=== PATIENT | male | born 1945 | race Caucasian/White ===

== ENCOUNTER → 2016-11-09 | Outpatient (CLI) | payer OTHER, MEDICARE | LOC: MMPC 11:11 | PROVIDERS: ATTEND Internal Medicine | DX: M48.06 Spinal stenosis, lumbar region (principal); Z02.89 Encounter for other administrative examinations; E11.9 Type 2 diabetes mellitus without complications; E78.5 Hyperlipidemia, unspecified; I48.91 Unspecified atrial fibrillation; E66.9 Obesity, unspecified | CPT/HCPCS: 99214; G0463 ==

== ENCOUNTER → 2017-02-22 | Outpatient (CLI) | payer OTHER, MEDICARE ==
[2017-02-22 10:41] LABS: BASOPHILS # (AUTO) 0.04 10*3/UL; BASOPHILS % (AUTO) 0.4 % (0-1); EOSINOPHILS # (AUTO) 0.32 10*3/UL; EOSINOPHILS % (AUTO) 3.5 % (0-8); HEMATOCRIT 49.9 % (42.0-52.0); HEMOGLOBIN 16.7 g/dL (14.0-18.0); LYMPHOCYTES # (AUTO) 2.63 10*3/uL; MEAN CORPUSCULAR HEMOGLOBIN 31.4 PG (27-31); MEAN CORPUSCULAR HGB CONC 33.5 g/dL (33-37); MEAN CORPUSCULAR VOLUME 93.8 FL (80-90); MEAN PLATELET VOLUME 10.3 FL (7.4-12.2); MONOCYTES # (AUTO) 0.72 10*3/UL (0.3-0.8); MONOCYTES % (AUTO) 7.9 % (5-15); NEUTROPHILS # (AUTO) 5.38 10*3/UL; NEUTROPHILS % (AUTO) 59.1 % (50-80); RED BLOOD COUNT 5.32 10^6/uL (4.70-6.10)
[2017-02-22 11:02] LABS: HEMOGLOBIN A1C 7.56 % (4.2-6.0)
[2017-02-22 11:03] LABS: CREATININE, URINE 73.4 MG/DL (15-500)
[2017-02-22 11:05] LABS: PLATELET MORPHOLOGY COMMENT NORMAL MORPHOLOGY (NORM); RBC MORPHOLOGY COMMENT NORMAL MORPHOLOGY (NORM); WBC MORPHOLOGY COMMENT NORMAL MORPHOLOGY (NORM)
[2017-02-22 12:18] LABS: BUN/CREATININE RATIO 18.88 (6-20); CALCIUM 9.6 mg/dL (8.7-10.7); CHOL/HDL RATIO 2.52 RATIO (0-4.0); SERUM ALBUMIN 3.9 g/dL (3.5-4.8)
== END ==
LOC: MOB LAB 08:35
PROVIDERS: ATTEND Internal Medicine
DX: E11.9 Type 2 diabetes mellitus without complications (principal); E78.5 Hyperlipidemia, unspecified; D53.9 Nutritional anemia, unspecified; I48.91 Unspecified atrial fibrillation; E87.5 Hyperkalemia; R61 Generalized hyperhidrosis; E66.9 Obesity, unspecified; R74.8 Abnormal levels of other serum enzymes; E29.1 Testicular hypofunction
CPT/HCPCS: 36415; 80053; 80061; 82043; 82550; 83036; 84403; 85025

== ENCOUNTER → 2017-02-24 | Outpatient (CLI) | payer OTHER, MEDICARE | LOC: MMPC 11:11 | PROVIDERS: ATTEND Internal Medicine | DX: E11.9 Type 2 diabetes mellitus without complications (principal); I48.91 Unspecified atrial fibrillation; E78.5 Hyperlipidemia, unspecified; E66.9 Obesity, unspecified; R74.8 Abnormal levels of other serum enzymes | CPT/HCPCS: 99214; G0463 ==

== ENCOUNTER → 2017-02-25 | Outpatient (CLI) | payer OTHER, MEDICARE | LOC: MMPC 09:00 | PROVIDERS: ATTEND Nurse Practitioner Family | DX: L57.0 Actinic keratosis (principal) | CPT/HCPCS: 17000 ×2; 17003 ×2; G0463 ==

== ENCOUNTER → 2017-05-25 | Outpatient (CLI) | payer OTHER, MEDICARE ==
[2017-05-25 12:10] LABS: HEMOGLOBIN A1C 7.21 % (4.2-6.0)
[2017-05-25 12:13] LABS: CREATININE, URINE 83.7 MG/DL (15-500)
[2017-05-25 12:14] LABS: BUN/CREATININE RATIO 17.05 (6-20); CALCIUM 9.5 mg/dL (8.7-10.7); SERUM ALBUMIN 3.9 g/dL (3.5-4.8)
[2017-05-25 12:15] LABS: CHOL/HDL RATIO 2.4 RATIO (0-4.0); LDL CHOLESTEROL,CALCULATED 37.6 mg/dL
== END ==
LOC: MOB LAB 10:55
PROVIDERS: ATTEND Internal Medicine
DX: E11.9 Type 2 diabetes mellitus without complications (principal); E78.5 Hyperlipidemia, unspecified; E29.1 Testicular hypofunction
CPT/HCPCS: 36415; 80053; 80061; 82043; 82550; 83036; 84403

== ENCOUNTER → 2017-06-01 | Outpatient (CLI) | payer OTHER, MEDICARE | LOC: MMPC 11:11 | PROVIDERS: ATTEND Surgery | DX: Z86.010 Personal history of colon polyps (principal); Z80.0 Family history of malignant neoplasm of digestive organs | CPT/HCPCS: 99212; G0463 ==

== ENCOUNTER 2017-06-02 08:40 | Day surgery (SDC) | payer OTHER, MEDICARE ==
[~2017-06-02 08:40] MED LIST: LIDOCAINE W/ SODIUM BICARB 0.5 ML SYR ONE; Lactated Ringers 1,000 ML PRIMARY IV ONE; fentaNYL Inj 100 MCG/2 ML VIAL ONE
[2017-06-02 09:13] VITALS: RESP 14
--- NOTE | 2017-06-02 09:58 | GEN.OPNOTE ---
Colonoscopy Procedure Note Surgery Date: 06/02/17 Preoperative Diagnosis: Personal history of colon polyps. Family history of colon cancer. Postoperative Diagnosis: Same. Right colon polyp-small. Procedure: Complete colonoscopy with biopsy and destruction of right colon polyp. Surgeon: Jonatan Bell MD Anesthesia Provider: Jose Cruz Garces CRNA Anesthesia Type: MAC Indications: See preoperative diagnosis. It's been 5 years since the patient's last colonoscopy. Findings: Prep : [Very good] Cecum : [Normal] Ascending : [Small polyp just above the ileocecal valve, biopsied and destroyed , otherwise normal] Transverse : [Normal] Sigmoid : [Scattered diverticuli, otherwise normal] Rectum : [Normal] Digital Rectal Exam : [No significant perianal pathology. Prostate normal size and consistency for age] A lubricated flexible colonoscope was inserted and passed to the blind end of the cecum. The blind end of the cecum, appendiceal orifice, ileocecal valve were all clearly seen. There is a small polyp just above the ileocecal valve. It was biopsied and destroyed. Air was aspirated as the scope was withdrawn. Other than scattered sigmoid diverticulosis the entire colonoscopy was normal without polyp, tumor, neoplastic mass, infectious or inflammatory process. The scope was withdrawn completing the procedure. Patient tolerated the procedure well without complication. He was taken to outpatient surgery in stable condition. Follow-up will be in my office on an as-needed basis. We will call the biopsy results when available. Patient will be on a 5 year recall program for colonoscopies with his personal history of colon polyps and his family history of colon cancer.
[2017-06-02 11:23] VITALS: TEMP 97.4
== END 2017-06-02 10:15 | disposition home or self-care (01) ==
LOC: SDSC 08:40
PROVIDERS: ATTEND Surgery
DX: Z86.010 Personal history of colon polyps (principal); Z80.0 Family history of malignant neoplasm of digestive organs; K63.5 Polyp of colon
CPT/HCPCS: 45380; 45388; J2704; J3010; J7120

== ENCOUNTER 2018-06-27 08:21 | Observation (INO) ==
[2018-06-27] MEDS ORDERED: Sodium Chloride 0.9% 1,000 ML PRIMARY IV ONE (08:31)
[2018-06-27] MEDS ORDERED: DILTIAZEM 5 MG/ML - 5 ML IV ONE ×2 (08:32→13:08)
--- NOTE | 2018-06-27 08:34 | EKG ---
[address] [address] Measurements Intervals [place] Rate: 146 P: LA: 0 QRS: 48 QRSD: 89 T: 65 QT: 274 QTc: 358 Interpretive Statements ATRIAL FIBRILLATION WITH RAPID VENTRICULAR RESPONSE LOW VOLTAGE ABNORMAL RHYTHM ECG No previous ECG available for comparison Electronically Signed On 06-27-18 15:17:39 MDT by Néstor Espinal [id number]
[2018-06-27 08:38] LABS: BASOPHILS # (AUTO) 0.05 10*3/UL; BASOPHILS % (AUTO) 0.4 % (0-1); EOSINOPHILS # (AUTO) 0.24 10*3/UL; EOSINOPHILS % (AUTO) 1.9 % (0-8); Hematocrit [HCT] 48.5 % (42.0-52.0); Hemoglobin [HGB] 16.7 g/dL (14.0-18.0); LYMPHOCYTES # (AUTO) 3.06 10*3/uL; MEAN CORPUSCULAR HEMOGLOBIN 31.3 PG (27-31); MEAN CORPUSCULAR HGB CONC 34.4 g/dL (33-37); MEAN PLATELET VOLUME 9.4 FL (7.4-12.2); MONOCYTES # (AUTO) 1.07 10*3/UL (0.3-0.8); MONOCYTES % (AUTO) 8.6 % (5-15); NEUTROPHILS # (AUTO) 7.97 10*3/UL; NEUTROPHILS % (AUTO) 64.1 % (50-80); RED BLOOD COUNT 5.33 10^6/uL (4.70-6.10)
[2018-06-27 08:40] LABS: PLATELET MORPHOLOGY COMMENT NORMAL MORPHOLOGY (NORM); RBC MORPHOLOGY COMMENT NORMAL MORPHOLOGY (NORM); WBC MORPHOLOGY COMMENT NORMAL MORPHOLOGY (NORM)
--- NOTE | 2018-06-27 08:43 | PDOC ---
Chest Pain HPI - General Date Seen by Provider: 06/27/18 Time Seen by Provider: 08:25 Source: Patient Exam Limitations: POSITIVE: No limitations Treatment Prior to Arrival: REPORTS: Other (The patient took 2 full strength aspirin this morning at home as well as a dose of Xarelto which he typically takes at night) Nurse's Notes Reviewed & Considered: Yes <JONATHAN ESTEVEZ - Last Filed: 06/27/18 09:06> <Yogi Rodriguez - Last Filed: 06/28/18 08:06> - General Chief Complaint: Chest Pain Stated Complaint: CHEST PAIN - History of Present Illness Initial Comments: The patient is a 72-year-old male who presents to the emergency department with left upper chest pain. He states that he woke up this morning with pain in his left upper chest. He also reports increase shortness of breath with walking. He denies any lightheadedness or syncope. He does have a history of chronic atrial fibrillation for which he is anticoagulated with Xarelto. He had recently done a follow-up with the surveillance inspector and was taken off of Rythmol approximately 2 weeks ago. He was due for his cardiology follow-up later today. Other than the atrial fibrillation the patient does not have any history of coronary artery disease. He does have a history of hypertension and diabetes. He does take Lopressor 50 mg twice a day. He states that he has had atrial fibrillation for quite some time and generally is unaware of the symptoms and his rate has typically been well controlled. He did have recent surgery on his right wrist. (JONATHAN ESTEVEZ) - Patient Home Medications Home Medications: Home Medications Ferrous Sulfate [Slow Rel Iron] 1 tab ORAL QD tab 06/11/11 Multivitamin [Flintstones] 1 ea PO DAILY 03/22/12 Ascorbic Acid [Vitamin C] 1 tab PO DAILY 09/21/12 Cholecalciferol (Vitamin D3) [Vitamin D3] 1 tab PO DAILY 09/21/12 duloxetine 60 mg capsule,delayed release 60 mg PO QD #90 cap 09/24/17 levothyroxine 88 mcg tablet 88 mcg PO QD #90 tab 09/24/17 metoprolol tartrate 50 mg tablet 50 mg PO BID #180 tab 09/24/17 omeprazole 40 mg capsule,delayed release 40 mg PO QD #90 cap 09/24/17 testosterone cypionate 200 mg/mL intramuscular oil 150 mg IM Q2 weeks #6 ml 06/04 dapagliflozin 5 mg tablet 5 mg PO QAM #90 tab 12/30/17 rivaroxaban 15 mg tablet 15 mg PO QPM #90 tab 03/07/18 tamsulosin 0.4 mg capsule 0.8 mg PO DAILY #180 cap 03/30/18 pravastatin 80 mg tablet 80 mg PO QHS #90 tab 04/07/18 hydrocodone bitartrate ER 80 mg tablet,crush resist,extended rel. 24hr 80 mg PO QDAY #60 tab 05/23/18 oxyCODONE IR Tab [OxyIR Tab] 10 mg PO Q4-6H PRN 06/27/18 - Patient Allergies Allergies/Adverse Reactions: Allergies 3 Allergy/AdvReac Type Severity Reaction Status Date / Time No Known Allergies Allergy Verified 06/27/18 08:32 Past Medical History - heen HEENT History: Denies History, Cataracts Additional HEENT History: removed from right eye Cardiovascular History: Hypertension, Arrhythmia, Hyperlipidemia Additional Cardiovasular History: HX OF A FIB Respiratory History: Denies History Additional Respiratory History: ALLERGIC RHINITIS Gastrointestinal History: Denies History Additional Gastrointestinal History: ABDOMINAL HERNIA X 6. Genitourinary History: Denies History Endocrine History: Type 2 Diabetes (oral), Hypothyroidism Musculoskeletal History: Arthritis Prosthesis or Implant: Yes (RIGHT KNEE) Neurological History: Denies History Blood Disorders: Anemia Psychiatric History: Denies History History of Sexually Transmitted Diseases: No Cancer History: Denies History History of MDRO: No History of Other Communicable Diseases: No Alcohol Use: None In the Past 12 Months, Have Used or Abuse Any Substance: None Previous Surgical History: Yes Type / Date of Surgery: ABDOMINAL WALL HERNIA APPY/ CATARACT EXT/ KIRTI/ COLONOSCOPY/ EGD/ GASTRIC BYPASS/ LEFT KNEE SCOPE/ L3-5 DECOMPRESSION/ RIGHT TKA Anesthesia Reactions: No Malignant Hyperthermia: No Significant Family History: Cancer Additional Family History: FATHER HAD COLON CA Past Medical History Reviewed: Reviewed - No Changes <JONATHAN ESTEVEZ - Last Filed: 06/27/18 09:06> ROS - Limitations ROS Limitations: No Limitations Constitution: DENIES: Chills, Fever Cardiovascular: REPORTS: Chest Pain, Heart Palpitations. DENIES: Edema Respiratory: REPORTS: Shortness Of Breath (With walking this morning). DENIES: Cough Non Productive, Cough Productive Neurological: REPORTS: Denies Neuro Symptoms. DENIES: Dizziness Gastrointestinal: REPORTS: Denies GI Symptoms Musculoskeletal: DENIES: Lower Extremity Swelling Eyes: REPORTS: Denies Symptoms ENT: REPORTS: Denies Symptoms <JONATHAN ESTEVEZ - Last Filed: 06/27/18 09:06> Chest Pain PE - General Appearance General Appearance: REPORTS: Alert, Cooperative, No Acute Distress - HEENT HEENT: POSITIVE: Head Inspection Nml, Eyes Inspection Nml, Ears Inspection Nml, Nose Inspection Nml, Pharynx Inspect. Nml - Neck Neck: REPORTS: Normal Inspection. DENIES: Lymphadenopathy - Respiratory Respiratory: REPORTS: No Respiratory Distress, Breath Sounds Normal - Cardiovascular Cardiovascular: REPORTS: Heart Sounds Normal, Irregularly Irreg Rhythm, Other ( Heart rate is between 130s and 190s) Peripheral Pulses: Dorsalis-pedis (R): 2+, Dorsalis-pedis (L): 2+ - Abdomen Abdomen: Soft: (All Quadrants), Denies Tenderness: (All Quadrants), No Distention: (All Quadrants) - Skin Skin: REPORTS: Intact, No Rash - Extremities Extremity: Normal ROM: (All Extremities), Normal Inspection: (All Extremities) - Neurological / Psychological Neurological: POSITIVE: Oriented X3, investigation specialist Normal As Tested, Motor Normal, Sensation Normal <JONATHAN ESTEVEZ - Last Filed: 06/27/18 09:06> Chest Pain Progress - Results Reviewed by me EKG Interpretation:: POSITIVE: Other (Patient's EKG shows atrial fibrillation with rapid ventricular response with a heart rate in the 130s, on the rhythm strip his heart rate is varying from the 130s to 180s.) <JONATHAN ESTEVEZ - Last Filed: 06/27/18 09:06> - Results Reviewed by me CBC and BMP: 06/27/18 08:31 06/27/18 08:31 <Yogi Rodriguez - Last Filed: 06/28/18 08:06> - Results Reviewed by me Lab Results:: Laboratory Results 3 06/27/18 06/27/18 06/27/18 08:31 08:31 08:31 WBC 12.44 H RBC 5.33 Hgb 16.7 Hct 48.5 MCV 91.0 H MCH 31.3 H MCHC 34.4 RDW Std Deviation 46.1 RDW Coeff of Licha 13.9 Plt Count 339 MPV 9.4 Immature Gran % (Auto) 0.4 Neut % (Auto) 64.1 Lymph % (Auto) 24.6 [place] % (Auto) 8.6 Eos % (Auto) 1.9 Baso % (Auto) 0.4 Immature Gran # (Auto) 0.05 Neut # (Auto) 7.97 Lymph # (Auto) 3.06 [place] # (Auto) 1.07 H Eos # (Auto) 0.24 Baso # (Auto) 0.05 WBC Morphology Comment Normal morphology Plt Morphology Comment Normal morphology RBC Morph Comment Normal morphology PT 15.4 H INR 1.49 D-Dimer 0.65 H Sodium 135 Potassium 4.5 Chloride 106 Carbon Dioxide 21 L Anion Gap 8 BUN 38 H Creatinine 1.8 H Estimated GFR 37 BUN/Creatinine Ratio 21.11 H Glucose 152 H Calculated Osmolality 291.0 Calcium 8.5 L Magnesium 1.3 L Total Bilirubin 1.4 H AST 50 ALT 21 Alkaline Phosphatase 75 CK-MB (CK-2) Troponin I C-Reactive Protein 0.7 NT-Pro-B Natriuret Pep 3210 H Total Protein 6.5 Albumin 3.3 L Globulin 3.2 Albumin/Globulin Ratio 1.00 L TSH 3 06/27/18 06/27/18 08:31 08:32 WBC RBC Hgb Hct MCV MCH MCHC RDW Std Deviation RDW Coeff of Licha Plt Count MPV Immature Gran % (Auto) Neut % (Auto) Lymph % (Auto) [place] % (Auto) Eos % (Auto) Baso % (Auto) Immature Gran # (Auto) Neut # (Auto) Lymph # (Auto) [place] # (Auto) Eos # (Auto) Baso # (Auto) WBC Morphology Comment Plt Morphology Comment RBC Morph Comment PT INR D-Dimer Sodium Potassium Chloride Carbon Dioxide Anion Gap BUN Creatinine Estimated GFR BUN/Creatinine Ratio Glucose Calculated Osmolality Calcium Magnesium Total Bilirubin AST ALT Alkaline Phosphatase CK-MB (CK-2) 1.62 Troponin I < 0.012 C-Reactive Protein NT-Pro-B Natriuret Pep Total Protein Albumin Globulin Albumin/Globulin Ratio TSH 0.782 - Patient's Progress MDM / ED Course: The patient presents to the emergency department with left upper chest pain. He has a history of chronic atrial fibrillation and is in atrial fibrillation with rapid ventricular response with a rate between 130s and 180s on arrival. His EKG otherwise does not show any evidence of ST segment or T-wave changes. He had already taken 2 full strength aspirin as well as a dose of Xarelto at home prior to arrival to the emergency department this morning. He was not hypotensive and an IV was established and he was given 10 mg of Cardizem IV. ( JONATHAN ESTEVEZ) Patient Care Time - Estimated PCT Patient Care Time (In Minutes): 15 <JONATHAN ESTEVEZ - Last Filed: 06/27/18 09:06> Vital Signs - VS Reviewed Vital Signs Reviewed: Yes <JONATHAN ESTEVEZ - Last Filed: 06/27/18 09:06> Discharge Discharge Disposition: Other (Patient care transferred to Dr. Rodriguez at 08:50) <JONATHAN ESTEVEZ - Last Filed: 06/27/18 09:06> <Yogi Rodriguez - Last Filed: 06/28/18 08:06> Clinical Impression: Chest pain, Atrial fibrillation with rapid ventricular response Condition: Serious
[2018-06-27 08:50] LABS: BUN/CREATININE RATIO 21.11 (6-20); SERUM ALBUMIN 3.3 g/dL (3.5-4.8)
[2018-06-27] MEDS ORDERED: Magnesium Sulfate 2gm (Premix) 2 GM/50 ML BAG IV ONE (08:57)
--- NOTE | 2018-06-27 09:13 | PDOC ---
Transfer of Care - Care Accepted Time Care Transferred: 08:45 Report from Transferring Physician Received: Yes MDM / ED Course: This is a well-developed, well-nourished, very pleasant, 72-year-old male, who came to the emergency room this morning with chest pain and rapid heart rate. Patient was awakened this morning with chest pain that he described as sharp and nonradiating behind his left scapula. He then recognized that his heart was racing. He took aspirin and an extra xaralto. Here in the emergency room it was discovered that he had a heart rate over 200 and atrial fibrillation, he then received 10 mg of diltiazem IV. Patient's Rythmol was recently stopped. At the time I assumed care of the patient his heart rate had improved into the 115 range and he was hemodynamically stable. His chest pain had resolved. Home Medications: Home Medications Ferrous Sulfate [Slow Rel Iron] 1 tab ORAL QD tab 06/11/11 Multivitamin [Flintstones] 1 ea PO DAILY 03/22/12 Ascorbic Acid [Vitamin C] 1 tab PO DAILY 09/21/12 Cholecalciferol (Vitamin D3) [Vitamin D3] 1 tab PO DAILY 09/21/12 duloxetine 60 mg capsule,delayed release 60 mg PO QD #90 cap 09/24/17 levothyroxine 88 mcg tablet 88 mcg PO QD #90 tab 09/24/17 metoprolol tartrate 50 mg tablet 50 mg PO BID #180 tab 09/24/17 omeprazole 40 mg capsule,delayed release 40 mg PO QD #90 cap 09/24/17 testosterone cypionate 200 mg/mL intramuscular oil 150 mg IM Q2 weeks #6 ml 06/04 dapagliflozin 5 mg tablet 5 mg PO QAM #90 tab 12/30/17 rivaroxaban 15 mg tablet 15 mg PO QPM #90 tab 03/07/18 tamsulosin 0.4 mg capsule 0.8 mg PO DAILY #180 cap 03/30/18 propafenone 225 mg tablet 225 mg PO Q8H #270 tab 04/01/18 pravastatin 80 mg tablet 80 mg PO QHS #90 tab 04/07/18 hydrocodone bitartrate ER 80 mg tablet,crush resist,extended rel. 24hr 80 mg PO QDAY #60 tab 05/23/18 hydrocodone 10 mg-acetaminophen 325 mg tablet 1 tab PO BID PRN #120 tab oxyCODONE IR Tab [OxyIR Tab] 10 mg PO Q4-6H PRN 06/27/18 Allergies/Adverse Reactions: Allergies No Known Allergies Allergy (Verified 06/27/18 08:32) Vital Signs Reviewed: Yes - Pending Patient Care Items Pending Patient Care Items: POSITIVE: Labs, X-ray Results - Expected Patient Outcome Tentative Impression of Patient: A-fib with RVR. Expected Disposition: POSITIVE: Admit Observation - Re-Evaluation of Patient Disposition of Patient: POSITIVE: Admitted Counseled: POSITIVE: Patient, Family, RE: Lab Results, RE: Radiology Results, RE : DX Pending Test Results Documented: Yes Clinical Impression Documented: Yes - Results Reviewed Lab Results Reviewed by Me: Yes (hypomagnesemia is noted with elevated d-dimer and normal cardiac enzymes) Lab Results: Laboratory Results 3 06/27/18 06/27/18 06/27/18 08:31 08:31 08:31 WBC 12.44 H RBC 5.33 Hgb 16.7 Hct 48.5 MCV 91.0 H MCH 31.3 H MCHC 34.4 RDW Std Deviation 46.1 RDW Coeff of Licha 13.9 Plt Count 339 MPV 9.4 Immature Gran % (Auto) 0.4 Neut % (Auto) 64.1 Lymph % (Auto) 24.6 [place] % (Auto) 8.6 Eos % (Auto) 1.9 Baso % (Auto) 0.4 Immature Gran # (Auto) 0.05 Neut # (Auto) 7.97 Lymph # (Auto) 3.06 [place] # (Auto) 1.07 H Eos # (Auto) 0.24 Baso # (Auto) 0.05 WBC Morphology Comment Normal morphology Plt Morphology Comment Normal morphology RBC Morph Comment Normal morphology PT 15.4 H INR 1.49 D-Dimer 0.65 H Sodium 135 Potassium 4.5 Chloride 106 Carbon Dioxide 21 L Anion Gap 8 BUN 38 H Creatinine 1.8 H Estimated GFR 37 BUN/Creatinine Ratio 21.11 H Glucose 152 H Calculated Osmolality 291.0 Calcium 8.5 L Magnesium 1.3 L Total Bilirubin 1.4 H AST 50 ALT 21 Alkaline Phosphatase 75 CK-MB (CK-2) Troponin I C-Reactive Protein 0.7 NT-Pro-B Natriuret Pep 3210 H Total Protein 6.5 Albumin 3.3 L Globulin 3.2 Albumin/Globulin Ratio 1.00 L TSH 3 06/27/18 06/27/18 08:31 08:32 WBC RBC Hgb Hct MCV MCH MCHC RDW Std Deviation RDW Coeff of Licha Plt Count MPV Immature Gran % (Auto) Neut % (Auto) Lymph % (Auto) [place] % (Auto) Eos % (Auto) Baso % (Auto) Immature Gran # (Auto) Neut # (Auto) Lymph # (Auto) [place] # (Auto) Eos # (Auto) Baso # (Auto) WBC Morphology Comment Plt Morphology Comment RBC Morph Comment PT INR D-Dimer Sodium Potassium Chloride Carbon Dioxide Anion Gap BUN Creatinine Estimated GFR BUN/Creatinine Ratio Glucose Calculated Osmolality Calcium Magnesium Total Bilirubin AST ALT Alkaline Phosphatase CK-MB (CK-2) 1.62 Troponin I < 0.012 C-Reactive Protein NT-Pro-B Natriuret Pep Total Protein Albumin Globulin Albumin/Globulin Ratio TSH 0.782 EKG Interpreted/Reviewed By Me:: Yes (A-fib with RVR) EKG Interpretation:: POSITIVE: Abnormal EKG - Consult Consult (If Yes, Name of Consulting MD & Time Called): Yes (Dr. Osman) Patient Care Time - Estimated PCT Patient Care Time (In Minutes): 30 Vital Signs - Recent Vital Signs Vital Signs: Vital Signs (Last 8 hours) Temp Pulse Pulse Resp BP Pulse Ox 06/27/18 10:03 111 H 06/27/18 08:31 181 H 06/27/18 08:22 97 F 200 H 18 125/72 94 - VS Reviewed Vital Signs Reviewed: Yes Discharge Clinical Impression: Chest pain, Atrial fibrillation with rapid ventricular response Discharge Disposition: Admit to Inpatient Condition: Serious Date Decision to Admit to Inpatient: 06/27/18 Time Decision to Admit to Inpatient: 10:45
--- NOTE | 2018-06-27 09:16 | DI ---
[facility] CHEST X-RAY, 06/27/2018 8:31 AM : Clinical History: Chest pain. Previous Exam: None at this facility. There is no acute soft tissue or bony abnormality. Heart size is normal. Lungs are clear. Mediastinal structures are normal. There are calcified and nodules present in the right upper lobe and the left midlung field laterally and these measure 5 x 6 mm and 3 mm, respectively. Readin. Normal chest x-ray. 2. Old granulomatous disease.
[2018-06-27] MEDS ORDERED: LIDOCAINE W/ SODIUM BICARB 0.5 ML SYR SUBD PRN (12:15)
[2018-06-27] MEDS ORDERED: NITROGLYCERIN 0.4 MG SL TAB (BOTTLE OF 3) SL PRN (12:15)
[2018-06-27] MEDS ORDERED: OMEPRAZOLE 40 MG CAPSULE PO SCH (12:15)
[2018-06-27] MEDS ORDERED: CALCIUM CARBONATE 500 MG (TUMS) CHEWABLE TABLET PO PRN (12:15)
[2018-06-27] MEDS ORDERED: HYDROcodone-APAP 10 MG-325 MG TABLET PO PRN (12:15)
[2018-06-27] MEDS ORDERED: MORPHINE SULFATE 2 MG/1 ML IV PRN (12:15)
--- NOTE | 2018-06-27 12:19 | DI ---
VENTILATION AND PERFUSION LUNG SCAN, 06/27/2018 8:57 AM: Clinical History: Chest pain. Shortness of breath. Elevated D-dimer test. The patient has renal insuf ficiency. Previous Exam: None at this facility. Comparison is made with the [facility] portable chest x-ray obtained ea julieta this morning. Technique: The patient was ventilated with Tc-99 DTPA aerosol, and 8 views were performed. The patien t was then injected with 6 mCi of Tc-99 MAA IV, and the same 8 views were performed. Comparison is ma de with the recent chest x-ray. The ventilation and perfusion lung scans are normal. No lobar or segmental defects are identified in either lung. Reading: Negative ventilation/perfusion lung scan for pulmonary embolism.
[2018-06-27 12:55] VITALS: RESP 20; TEMP 97.3; O2SAT 98
[2018-06-27] MEDS ORDERED: oxyCODONE IR Tab 5 MG TAB PO PRN (13:08)
--- NOTE | 2018-06-27 14:07 | PDOC ---
HPI - History of Present Illness Date of Service: 06/27/18 Time of Service: 13:57 Chief Complaint: chest pain History of Present Illness: This very pleasant 72-year-old male who presented this morning with chest pain. He stated around 3 AM, that he developed shoulder pain in the left shoulder blade, and then woke up at about 7:30 with substernal chest pain that causes nausea as well. It seemed worse when he took a deep breath in. He came into the emergency room and he was found to be in atrial fibrillation with rapid ventricular response and his heart rate went as high as 200 bpm. Cardizem controlled the heart rate with intermittent dosing. He got 10 mg in the emergency room and then a repeat of 15 mg on the floor. He does note that he has not had any prior heart attack and he has not had a stroke from his atrial fibrillation. He is on Xarelto at a renal dose to help prevent stroke due to renal insufficiency. He does have risk factors of diabetes mellitus type II, hypertension, hypercholesterolemia, and family history in that his brother had a myocardial infarction at age 50. He does not currently smoke but has a remote history of smoking tobacco. On examination when the patient took in a deep breath his chest pain was reproducible. He had a VQ scan done as his d- dimer was elevated, and it was negative for pulmonary embolism. Unfortunately, our facility is not capable of doing a stress test until Wednesday because of the VQ scan I am told. The patient notes to me that he has been in persistent atrial fibrillation for a number of years despite being on Rythmol. He was taken off of Rythmol by his hydroelectric production technician 2 weeks ago. He is not sure if the chest pain is there because his atrial fibrillation is now not rate controlled or not. He is on a beta viet at home. He has never visited with the discharge door operator. Past Medical History Medical History: 1. Chronic atrial fibrillation. 2. Status post gastric bypass with significant weight loss. 3. Hypertension. 4. Diabetes mellitus type II. 5. 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 6. Hypercholesterolemia. 7. Hypothyroidism. 8. Chronic pain syndrome. 9. BPH , well controlled on Flomax. 10. Chronic kidney disease, stage III. Surgical History: 1. Cholecystectomy. 2. Appendectomy. 3. Large abdominal wall hernia repair with mesh. 4. Gastric bypass. 5. Right knee replacement with subsequent infection and then replaced again. 6. Right wrist surgery recently done Family History: Reviewed an Not Pertinent Pertinent Family History: Significant for coronary artery disease in his brother who had a myocardial infarction at age 50 Past Social History: Smoked over 40-50 years ago. , on his second marriage. Was on his first marriage. Has 2 children that are described as healthy. Drinks socially. Tobacco Use: Former Smoker In the Past 12 Months, Have Used or Abuse Any of the Following Substance: None Alcohol Use: Occasionally Medication / Allergies Home Medications: Home Medications 3 Medication Instructions Recorded Confirmed Type Ferrous Sulfate [Slow Rel Iron] 1 tab ORAL QD tab 06/11/11 06/27/18 History Multivitamin [Flintstones] 1 ea PO DAILY 03/22/12 06/27/18 History Ascorbic Acid [Vitamin C] 1 tab PO DAILY 09/21/12 06/27/18 History Cholecalciferol (Vitamin D3) 1 tab PO DAILY 09/21/12 06/27/18 History [Vitamin D3] duloxetine 60 mg capsule,delayed 60 mg PO QD #90 cap 09/24/17 06/27/18 Rx release levothyroxine 88 mcg tablet 88 mcg PO QD #90 tab 09/24/17 06/27/18 Rx metoprolol tartrate 50 mg tablet 50 mg PO BID #180 tab 09/24/17 06/27/18 Rx omeprazole 40 mg capsule,delayed 40 mg PO QD #90 cap 09/24/17 06/27/18 Rx release testosterone cypionate 200 mg/mL 150 mg IM Q2 weeks #6 ml 12/23/17 06/27/18 Rx intramuscular oil dapagliflozin 5 mg tablet 5 mg PO QAM #90 tab 12/30/17 06/27/18 Rx rivaroxaban 15 mg tablet 15 mg PO QPM #90 tab 03/07/18 06/27/18 Rx tamsulosin 0.4 mg capsule 0.8 mg PO DAILY #180 cap 03/30/18 06/27/18 Rx propafenone 225 mg tablet 225 mg PO Q8H #270 tab 04/01/18 06/27/18 Rx pravastatin 80 mg tablet 80 mg PO QHS #90 tab 04/07/18 06/27/18 Rx hydrocodone bitartrate ER 80 mg 80 mg PO QDAY #60 tab 05/23/18 06/27/18 Rx tablet,crush resist,extended rel. 24hr hydrocodone 10 mg-acetaminophen 1 tab PO BID PRN #120 tab 06/15/18 06/27/18 Rx 325 mg tablet oxyCODONE IR Tab [OxyIR Tab] 10 mg PO Q4-6H PRN 06/27/18 06/27/18 History Allergies/Adverse Reactions: Allergies 3 Allergy/AdvReac Type Severity Reaction Status Date / Time No Known Allergies Allergy Verified 06/27/18 08:32 Review of Systems - Review of Systems All Systems: Reviewed & No Additional Complaints Except as Stated (I did a 12 point review of systems and other than that discussed in history present illness , the review systems is negative.) - Respiratory Respiratory: REPORTS: See HPI - Cardiovascular Cardiovascular: REPORTS: Chest Pain, See HPI - Gastrointestinal Gastrointestinal / Abdominal: REPORTS: Negative System Review - Musculoskeletal Musculoskeletal: REPORTS: Back Pain, Other (Joint pains that are chronic. He states that since his right wrist surgery, his pain is been flared a bit more and he has been on some oxycodone, intermediate release, which has helped control his pain more than the hydrocodone.) - Neurological Neurologic: REPORTS: Negative System Review Exam - Vitals Vital Signs: Vital Signs Temperature 97.3 F Temperature Source Temporal Artery Scan Pulse Rate [Pulse Oximeter] 74 Pulse Rate [Telemetry] 111 Pulse Rate 181 Respiratory Rate 20 Blood Pressure [Right Arm] 109/77 Pulse Ox 98 Oxygen Delivery Method Room Air Height 6 ft Weight 200 lb - General General Appearance: No Acute Distress, Cooperative - Head Head Exam: Normal Inspection, Normocephalic, Atraumatic Results - Labs CBC and BMP: 06/27/18 08:31 06/27/18 08:31 Additional Lab Results: Laboratory Results 06/27/18 06/27/18 06/27/18 Range/Units 08:31 08:31 08:31 WBC 12.44 H (4.8-10.8) 10^3/uL RBC 5.33 (4.70-6.10) 10^6/uL Hgb 16.7 (14.0-18.0) g/dL Hct 48.5 (42.0-52.0) % MCV 91.0 H (80-90) FL MCH 31.3 H (27-31) PG MCHC 34.4 (33-37) g/dL RDW Std Deviation 46.1 (39-50) fL RDW Coeff of Licha 13.9 (11.5-14.5) % Plt Count 339 (140-350) 10*3/uL MPV 9.4 (7.4-12.2) FL Immature Gran % (Auto) 0.4 (0-5) % Neut % (Auto) 64.1 (50-80) % Lymph % (Auto) 24.6 (10-50) % [place] % (Auto) 8.6 (5-15) % Eos % (Auto) 1.9 (0-8) % Baso % (Auto) 0.4 (0-1) % Immature Gran # (Auto) 0.05 10*3/UL Neut # (Auto) 7.97 10*3/UL Lymph # (Auto) 3.06 10*3/uL [place] # (Auto) 1.07 H (0.3-0.8) 10*3/UL Eos # (Auto) 0.24 10*3/UL Baso # (Auto) 0.05 10*3/UL WBC Morphology Comment Normal morphology (NORM) Plt Morphology Comment Normal morphology (NORM) RBC Morph Comment Normal morphology (NORM) PT 15.4 H (9.7-11.4) secs INR 1.49 (0.00-5.90) N/A D-Dimer 0.65 H (0.00-0.59) mg/L Sodium 135 (135-145) meq/L Potassium 4.5 (3.8-5.2) meq/L Chloride 106 (98-112) meq/L Carbon Dioxide 21 L (23-33) meq/L Anion Gap 8 (5-20) BUN 38 H (7-22) mg/dL Creatinine 1.8 H (0.70-1.50) mg/dL Estimated GFR 37 (>60 ml/min/1.73m(2)) BUN/Creatinine Ratio 21.11 H (6-20) Glucose 152 H (78-110) mg/dL Calculated Osmolality 291.0 (267-292) mOsm/kg Calcium 8.5 L (8.7-10.7) mg/dL Magnesium 1.3 L (1.6-2.4) mg/dL Total Bilirubin 1.4 H (0.3-1.2) mg/dL AST 50 (21-57) IU/L ALT 21 (21-72) IU/L Alkaline Phosphatase 75 (38-126) IU/L CK-MB (CK-2) (0.00-5.00) NG/ML Troponin I (< 0.040) ng/mL C-Reactive Protein 0.7 (0.0-0.9) mg/dL NT-Pro-B Natriuret Pep 3210 H (0-125) PG/ML Total Protein 6.5 (6.1-8.0) g/dL Albumin 3.3 L (3.5-4.8) g/dL Globulin 3.2 (2.50-4.10) g/dL Albumin/Globulin Ratio 1.00 L (1.3-2.0) mg/g TSH (0.2700-4.2000) uIU/mL 06/27/18 06/27/18 Range/Units 08:31 08:32 WBC (4.8-10.8) 10^3/uL RBC (4.70-6.10) 10^6/uL Hgb (14.0-18.0) g/dL Hct (42.0-52.0) % MCV (80-90) FL MCH (27-31) PG MCHC (33-37) g/dL RDW Std Deviation (39-50) fL RDW Coeff of Licha (11.5-14.5) % Plt Count (140-350) 10*3/uL MPV (7.4-12.2) FL Immature Gran % (Auto) (0-5) % Neut % (Auto) (50-80) % Lymph % (Auto) (10-50) % [place] % (Auto) (5-15) % Eos % (Auto) (0-8) % Baso % (Auto) (0-1) % Immature Gran # (Auto) 10*3/UL Neut # (Auto) 10*3/UL Lymph # (Auto) 10*3/uL [place] # (Auto) (0.3-0.8) 10*3/UL Eos # (Auto) 10*3/UL Baso # (Auto) 10*3/UL WBC Morphology Comment (NORM) Plt Morphology Comment (NORM) RBC Morph Comment (NORM) PT (9.7-11.4) secs INR (0.00-5.90) N/A D-Dimer (0.00-0.59) mg/L Sodium (135-145) meq/L Potassium (3.8-5.2) meq/L Chloride (98-112) meq/L Carbon Dioxide (23-33) meq/L Anion Gap (5-20) BUN (7-22) mg/dL Creatinine (0.70-1.50) mg/dL Estimated GFR (>60 ml/min/1.73m(2)) BUN/Creatinine Ratio (6-20) Glucose (78-110) mg/dL Calculated Osmolality (267-292) mOsm/kg Calcium (8.7-10.7) mg/dL Magnesium (1.6-2.4) mg/dL Total Bilirubin (0.3-1.2) mg/dL AST (21-57) IU/L ALT (21-72) IU/L Alkaline Phosphatase (38-126) IU/L CK-MB (CK-2) 1.62 (0.00-5.00) NG/ML Troponin I < 0.012 (< 0.040) ng/mL C-Reactive Protein (0.0-0.9) mg/dL NT-Pro-B Natriuret Pep (0-125) PG/ML Total Protein (6.1-8.0) g/dL Albumin (3.5-4.8) g/dL Globulin (2.50-4.10) g/dL Albumin/Globulin Ratio (1.3-2.0) mg/g TSH 0.782 (0.2700-4.2000) uIU/mL - EKG Data -: EKG Interpreted by Me Rate: Tachycardia - EKG Data When Compared to Previous EKG(s) There Are: Previous EKG Unavailable EKG Interpretation: Other (Atrial fibrillation with rapid ventricular response) - Imaging Status: Image Reviewed by Me (Chest x-ray is negative on my view.) Assessment and Plan - Patient Problems (1) Chest pain Current Visit: Yes Status: Acute Code(s): R07.9 - Chest pain, unspecified (2) Atrial fibrillation with rapid ventricular response Current Visit: Yes Status: Acute Code(s): I48.91 - Unspecified atrial fibrillation (3) Chronic kidney disease, stage III (moderate) Current Visit: Yes Status: Acute Code(s): N18.3 - Chronic kidney disease, stage 3 (moderate) (4) Chronic pain of multiple joints Current Visit: No Status: Chronic Code(s): M25.50 - Pain in unspecified joint; G89.29 - Other chronic pain (5) Hyperlipidemia associated with type 2 diabetes mellitus Current Visit: Yes Status: Chronic Onset Date: 02/24/17 Code(s): E11.69 - Type 2 diabetes mellitus with other specified complication; E78.5 - Hyperlipidemia, unspecified (6) Diabetes mellitus type 2 in nonobese Current Visit: Yes Status: Chronic Onset Date: 03/29/12 Code(s): E11.9 - Type 2 diabetes mellitus without complications (7) Benign hypertension Current Visit: Yes Status: Chronic - Assessment / Plan Additional Assessment/Plan Details: The patient is being admitted, had serial enzymes ordered. My concern is that we will not be able to do a stress test until Wednesday, and given that he is having chest pain with his atrial fibrillation, I think it's important that we get a stress test done as soon as possible. In addition, I think it'll be very complex to try and figure out a rate control and/or rhythm control. I spoke to cardiology in [place], Dr. Taylor is willing to accept the patient to continue this workup and evaluation and treatment. I think that would be best for the patient, particularly as he has significant risk factors and typically has not had chest pain with his atrial fibrillation over several years. I spoke with the patient and his about this and they were in agreement with the plan as well. In the meantime, we'll use Cardizem intermittently to control heart rate. We will keep him on his home medications although I did recommend stopping Farxiga as it can be associated with renal insufficiency and renal failure. The patient will remain on Xarelto I recommended that the patient have a stress test but if he needed to proceed to heart catheterization that he should consider asking for nephrology consult as well.
--- NOTE | 2018-06-27 14:25 | DCSUMMARY ---
Hospitalization Summary Admit Date: 06/27/2018 Discharge Date: 06/27/18 Primary Diagnosis:: chest pain with atrial fibrillation with RVR Hospital Course: This very pleasant 72-year-old male who was admitted today with chest pain with atrial fibrillation with rapid ventricular response. Please see the history and physical exam for further details of the patient's clinical scenario and situation. I've spoken with cardiology at [facility] [place], and they have agreed to accept the patient to continue his workup. He is negative for pulmonary emboli here with a VQ scan. He responded well to diltiazem intermittently IV, but I am concerned with his renal insufficiency, and our inability to do a stress test until Wednesday that this may be too long to wait to do this study on this patient. In particular, I do note that he has not had chest pain with chronic atrial fibrillation. He has several risk factors for coronary artery disease. Currently, heart rate is under better control with 15 mg of IV Cardizem on the floor. We will continue to do serial enzymes while the patient remains at our facility and if due for lab check. He is on Xarelto. He denies any nausea or vomiting. He noted to me that his chest pain, substernal, seemed worse with a deep breath. Assessment and Plan: 1. As per discharge assessments noted 2. Disposition: Patient is discharged to [facility] 3. Condition on discharge, stable and improved. 4. Diet: regular diet 5. Activities: As per cardiology at [facility] 6. Follow-Up: 1. See Dr. Tapia 7 days post discharge 2. 7. Medications at the Time of Discharge: Home Medications 3 Medication Instructions Recorded Confirmed Type Ferrous Sulfate [Slow Rel Iron] 1 tab ORAL QD tab 06/11/11 06/27/18 History Multivitamin [Flintstones] 1 ea PO DAILY 03/22/12 06/27/18 History Ascorbic Acid [Vitamin C] 1 tab PO DAILY 09/21/12 06/27/18 History Cholecalciferol (Vitamin D3) 1 tab PO DAILY 09/21/12 06/27/18 History [Vitamin D3] duloxetine 60 mg capsule,delayed 60 mg PO QD #90 cap 09/24/17 06/27/18 Rx release levothyroxine 88 mcg tablet 88 mcg PO QD #90 tab 12/08/17 09/10/18 Rx metoprolol tartrate 50 mg tablet 50 mg PO BID #180 tab 09/24/17 06/27/18 Rx omeprazole 40 mg capsule,delayed 40 mg PO QD #90 cap 09/24/17 06/27/18 Rx release testosterone cypionate 200 mg/mL 150 mg IM Q2 weeks #6 ml 12/23/17 06/27/18 Rx intramuscular oil dapagliflozin 5 mg tablet 5 mg PO QAM #90 tab 12/30/17 06/27/18 Rx rivaroxaban 15 mg tablet 15 mg PO QPM #90 tab 03/07/18 06/27/18 Rx tamsulosin 0.4 mg capsule 0.8 mg PO DAILY #180 cap 03/30/18 06/27/18 Rx propafenone 225 mg tablet 225 mg PO Q8H #270 tab 04/01/18 06/27/18 Rx pravastatin 80 mg tablet 80 mg PO QHS #90 tab 04/07/18 06/27/18 Rx hydrocodone bitartrate ER 80 mg 80 mg PO QDAY #60 tab 05/23/18 06/27/18 Rx tablet,crush resist,extended rel. 24hr hydrocodone 10 mg-acetaminophen 1 tab PO BID PRN #120 tab 06/15/18 06/27/18 Rx 325 mg tablet oxyCODONE IR Tab [OxyIR Tab] 10 mg PO Q4-6H PRN 06/27/18 06/27/18 History Please note currently the patient is taking oxycodone IR in place of his hydrocodone after his recent right wrist surgery. 8. Time, care, counseling and coordination of care for this discharge is greater than 30 minutes. Exam - Vitals Vital Signs: Vital Signs Vital Signs - Last Taken Temperature 97.3 F 06/27/18 12:54 Pulse Rate 74 06/27/18 12:54 Respiratory Rate 20 06/27/18 12:54 Blood Pressure 109/77 06/27/18 12:54 Pulse Ox 98 06/27/18 12:54 - General General Appearance: No Acute Distress, Cooperative - Head Head Exam: Normal Inspection, Normocephalic, Atraumatic - Eye Eye Exam: POSITIVE: No Scleral Icterus - ENT ENT Exam: POSITIVE: Mucous Membranes Moist - Respiratory Respiratory Exam: POSITIVE: Clear to Auscultation - Bilaterally, Breathing Non Labored - Cardiovascular Cardiovascular Exam: POSITIVE: No Murmur, No Clicks, No Gallops, No Rubs, Irregular Rhythm, Tachycardia - GI/Abdominal GI/Abdominal Exam: POSITIVE: Normal Bowel Sounds, Non Tender, Non Distended, Soft - Extremities Extremities Exam: POSITIVE: No Clubbing Present, No Edema Present, No Cyanosis Present - Neurological Neurological Exam: POSITIVE: Alert, Oriented x 3, No Facial Droop, Speech Intact / Clear, Moves All Extremities Equally Data Peritnent Studies: Laboratory Results 06/27/18 06/27/18 06/27/18 Range/Units 08:31 08:31 08:31 WBC 12.44 H (4.8-10.8) 10^3/uL RBC 5.33 (4.70-6.10) 10^6/uL Hgb 16.7 (14.0-18.0) g/dL Hct 48.5 (42.0-52.0) % MCV 91.0 H (80-90) FL MCH 31.3 H (27-31) PG MCHC 34.4 (33-37) g/dL RDW Std Deviation 46.1 (39-50) fL RDW Coeff of Licha 13.9 (11.5-14.5) % Plt Count 339 (140-350) 10*3/uL MPV 9.4 (7.4-12.2) FL Immature Gran % (Auto) 0.4 (0-5) % Neut % (Auto) 64.1 (50-80) % Lymph % (Auto) 24.6 (10-50) % [place] % (Auto) 8.6 (5-15) % Eos % (Auto) 1.9 (0-8) % Baso % (Auto) 0.4 (0-1) % Immature Gran # (Auto) 0.05 10*3/UL Neut # (Auto) 7.97 10*3/UL Lymph # (Auto) 3.06 10*3/uL [place] # (Auto) 1.07 H (0.3-0.8) 10*3/UL Eos # (Auto) 0.24 10*3/UL Baso # (Auto) 0.05 10*3/UL WBC Morphology Comment Normal morphology (NORM) Plt Morphology Comment Normal morphology (NORM) RBC Morph Comment Normal morphology (NORM) PT 15.4 H (9.7-11.4) secs INR 1.49 (0.00-5.90) N/A D-Dimer 0.65 H (0.00-0.59) mg/L Sodium 135 (135-145) meq/L Potassium 4.5 (3.8-5.2) meq/L Chloride 106 (98-112) meq/L Carbon Dioxide 21 L (23-33) meq/L Anion Gap 8 (5-20) BUN 38 H (7-22) mg/dL Creatinine 1.8 H (0.70-1.50) mg/dL Estimated GFR 37 (>60 ml/min/1.73m(2)) BUN/Creatinine Ratio 21.11 H (6-20) Glucose 152 H (78-110) mg/dL Calculated Osmolality 291.0 (267-292) mOsm/kg Calcium 8.5 L (8.7-10.7) mg/dL Magnesium 1.3 L (1.6-2.4) mg/dL Total Bilirubin 1.4 H (0.3-1.2) mg/dL AST 50 (21-57) IU/L ALT 21 (21-72) IU/L Alkaline Phosphatase 75 (38-126) IU/L CK-MB (CK-2) (0.00-5.00) NG/ML Troponin I (< 0.040) ng/mL C-Reactive Protein 0.7 (0.0-0.9) mg/dL NT-Pro-B Natriuret Pep 3210 H (0-125) PG/ML Total Protein 6.5 (6.1-8.0) g/dL Albumin 3.3 L (3.5-4.8) g/dL Globulin 3.2 (2.50-4.10) g/dL Albumin/Globulin Ratio 1.00 L (1.3-2.0) mg/g TSH (0.2700-4.2000) uIU/mL 06/27/18 06/27/18 Range/Units 08:31 08:32 WBC (4.8-10.8) 10^3/uL RBC (4.70-6.10) 10^6/uL Hgb (14.0-18.0) g/dL Hct (42.0-52.0) % MCV (80-90) FL MCH (27-31) PG MCHC (33-37) g/dL RDW Std Deviation (39-50) fL RDW Coeff of Licha (11.5-14.5) % Plt Count (140-350) 10*3/uL MPV (7.4-12.2) FL Immature Gran % (Auto) (0-5) % Neut % (Auto) (50-80) % Lymph % (Auto) (10-50) % [place] % (Auto) (5-15) % Eos % (Auto) (0-8) % Baso % (Auto) (0-1) % Immature Gran # (Auto) 10*3/UL Neut # (Auto) 10*3/UL Lymph # (Auto) 10*3/uL [place] # (Auto) (0.3-0.8) 10*3/UL Eos # (Auto) 10*3/UL Baso # (Auto) 10*3/UL WBC Morphology Comment (NORM) Plt Morphology Comment (NORM) RBC Morph Comment (NORM) PT (9.7-11.4) secs INR (0.00-5.90) N/A D-Dimer (0.00-0.59) mg/L Sodium (135-145) meq/L Potassium (3.8-5.2) meq/L Chloride (98-112) meq/L Carbon Dioxide (23-33) meq/L Anion Gap (5-20) BUN (7-22) mg/dL Creatinine (0.70-1.50) mg/dL Estimated GFR (>60 ml/min/1.73m(2)) BUN/Creatinine Ratio (6-20) Glucose (78-110) mg/dL Calculated Osmolality (267-292) mOsm/kg Calcium (8.7-10.7) mg/dL Magnesium (1.6-2.4) mg/dL Total Bilirubin (0.3-1.2) mg/dL AST (21-57) IU/L ALT (21-72) IU/L Alkaline Phosphatase (38-126) IU/L CK-MB (CK-2) 1.62 (0.00-5.00) NG/ML Troponin I < 0.012 (< 0.040) ng/mL C-Reactive Protein (0.0-0.9) mg/dL NT-Pro-B Natriuret Pep (0-125) PG/ML Total Protein (6.1-8.0) g/dL Albumin (3.5-4.8) g/dL Globulin (2.50-4.10) g/dL Albumin/Globulin Ratio (1.3-2.0) mg/g TSH 0.782 (0.2700-4.2000) uIU/mL Procedures: [address] [facility] [place] [address] PH: DD: [phone] FAX: [phone] ~DIAGNOSTIC IMAGING REPORT~ Patient: Martín Linton : 1945 Sex: M Age: 72 Exam Name: XR CXR 1VW Exam Date: 06/27/18 Report # : [id number] CPT Code: 51292 EMR/MR #: [id number] Ordering: JONATHAN ESTEVEZ Admiting: Primary: Cr Tapia MD Attending: Signed [facility] CHEST X-RAY, 06/27/2018 8:31 AM : Clinical History: Chest pain. Previous Exam: None at this facility. There is no acute soft tissue or bony abnormality. Heart size is normal. Lungs are clear. Mediastinal structures are normal. There are calcified and nodules present in the right upper lobe and the left midlung field laterally and these measure 5 x 6 mm and 3 mm, respectively. Readin. Normal chest x-ray. 2. Old granulomatous disease. Dictated By: 06/27/18 0910 ARUNA SANDS MD. Signed By: 06/27/18 0916 ARUNA SANDS MD. [address] [facility] [place] [address] PH: DD: [phone] FAX: [phone] ~DIAGNOSTIC IMAGING REPORT~ Patient: Matrín Linton: 1945 Sex: M Age: 72 Exam Name: NM Pulmonary Perf & Vent VQ Exam Date: 06/27/18 Report # : [id number] CPT Code: 33841 EMR/MR #: [id number] Ordering: Yogi Rodriguez Admiting: Primary: Cr Tapia MD Attending: Signed VENTILATION AND PERFUSION LUNG SCAN, 06/27/2018 8:57 AM: Clinical History: Chest pain. Shortness of breath. Elevated D-dimer test. The patient has renal insufficiency. Previous Exam: None at this facility. Comparison is made with the AP portable chest x-ray obtained earlier this morning. Technique: The patient was ventilated with Tc-99 DTPA aerosol, and 8 views were performed. The patient was then injected with 6 mCi of Tc-99 MAA IV, and the same 8 views were performed. Comparison is made with the recent chest x-ray. The ventilation and perfusion lung scans are normal. No lobar or segmental defects are identified in either lung. Reading: Negative ventilation/perfusion lung scan for pulmonary embolism. Dictated By: 06/27/18 1214 ARUNA SANDS MD. Signed By: 06/27/18 1219 ARUNA SANDS MD. Patient Problems - Patient Problem List (1) Chest pain Current Visit: Yes Status: Acute Code(s): R07.9 - Chest pain, unspecified Category: Medical (2) Atrial fibrillation with rapid ventricular response Current Visit: Yes Status: Acute Code(s): I48.91 - Unspecified atrial fibrillation Category: Medical (3) Chronic kidney disease, stage III (moderate) Current Visit: Yes Status: Acute Code(s): N18.3 - Chronic kidney disease, stage 3 (moderate) Category: Medical (4) Chronic pain of multiple joints Current Visit: No Status: Chronic Code(s): M25.50 - Pain in unspecified joint; G89.29 - Other chronic pain Category: Medical (5) Hyperlipidemia associated with type 2 diabetes mellitus Current Visit: Yes Status: Chronic Onset Date: 02/24/17 Code(s): E11.69 - Type 2 diabetes mellitus with other specified complication; E78.5 - Hyperlipidemia, unspecified Category: Medical (6) Diabetes mellitus type 2 in nonobese Current Visit: Yes Status: Chronic Onset Date: 03/29/12 Code(s): E11.9 - Type 2 diabetes mellitus without complications Category: Medical (7) Benign hypertension Current Visit: Yes Status: Chronic Category: Medical
[2018-06-27 15:59] VITALS: BP 114/68
[2018-06-27] MEDS ORDERED: DULOXETINE 60 MG CAPSULE PO SCH (21:00)
[2018-06-27] MEDS ORDERED: Metoprolol TARTRATE Tab 50 MG TAB PO SCH (21:00)
[2018-06-27] MEDS ORDERED: RIVAROXABAN 15 MG PO SCH (21:00)
[2018-06-27] MEDS ORDERED: TAMSULOSIN 0.4 MG CAPSULE PO SCH (21:00)
[2018-06-27] MEDS ORDERED: Pravastatin 80mg Tab PO SCH (21:00)
[2018-06-28] MEDS ORDERED: LEVOTHYROXINE 88 MCG TABLET PO SCH (05:30)
[2018-06-28] MEDS ORDERED: MULTIVITAMIN PO SCH (09:00)
[2018-06-28] MEDS ORDERED: CHOLECALCIFEROL PO SCH (09:00)
[2018-06-28] MEDS ORDERED: Multivitamin Tab 1 TAB PO SCH (09:00)
[2018-06-28] MEDS ORDERED: CHOLECALCIFEROL 1000 IU TABLET PO SCH (09:00)
[2018-06-28] MEDS ORDERED: ASCORBIC ACID PO SCH (09:00)
[2018-06-28] MEDS ORDERED: OMEPRAZOLE 40 MG CAPSULE PO SCH (09:00)
[2018-06-28] MEDS ORDERED: TAMSULOSIN 0.4 MG CAPSULE PO SCH (09:00)
[2018-06-28] MEDS ORDERED: ASCORBIC ACID Chewable 500 MG TABLET PO SCH (09:00)
== END 2018-06-27 14:59 | disposition short-term general hospital (02) ==
LOC: ER 08:21 → MED/SURG 08:21
PROVIDERS: ADMIT Family Medicine; ATTEND Family Medicine